=== PATIENT | female | born 1970 | race Caucasian/White ===

== ENCOUNTER 2021-09-28 11:19 | Outpatient (CLI) | payer OTHER, SELFPAY ==
[2021-09-28 12:29] LABS: Luteinizing Hormone 34.5 mIU/mL; Phosphorus 2.6 mg/dL (2.5-4.9)
== END 2021-09-28 23:59 | disposition home or self-care (01) ==
LOC: BIMLAB 11:20
PROVIDERS: Referring Provider Internal Medicine Endocrinology, Diabetes & Metabolism; Visit Provider Internal Medicine Endocrinology, Diabetes & Metabolism
DX: E21.3 Hyperparathyroidism, unspecified (principal)
CPT/HCPCS: 36415; 82306; 83001; 83002; 84100